=== PATIENT | male | born 1970 | race Caucasian/White ===

== ENCOUNTER 2023-10-29 15:52 | Outpatient (CLI) | payer OTHER, SELFPAY ==
--- NOTE | ~2023-10-29 | CT_ITS ---
EXAMINATION: CT sinus wo con DATE: 10/29/2023 16:07 INDICATION: Chronic sinusitis TECHNIQUE: Computed tomography (CT) of the paranasal sinuses was performed without contrast. Iterativ e reconstruction technique was employed. Exam dose: 424.25 mGy-cm total exam DLP. COMPARISON: None FINDINGS: Prominent leftward deviation of the nasal septum. Prominent soft tissue swelling of the nasal turbinates. The ostiomeatal units are patent. The right frontal sinus is not developed. The left frontal sinus, the bilateral ethmoid air cells, ma xillary and sphenoid sinuses are normally developed and aerated. The mastoid air cells are normally developed and aerated. IMPRESSION: Prominent leftward deviation of nasal septum Prominent soft tissue swelling of the nasal turbinates Undeveloped right frontal sinus; sinuses, ostiomeatal units and mastoid air cells otherwise are well developed and aerated Reviewed, dictated and finalized at [facility]. Reviewed, dictated and finalized at location B. IMPRESSION: Prominent leftward deviation of nasal septum Prominent soft tissue swelling of the nasal turbinates Undeveloped right frontal sinus; sinuses, ostiomeatal units and mastoid air beth ls otherwise are well developed and aerated
== END 2023-10-29 15:53 ==
PROVIDERS: PCP Otolaryngology; Visit Provider Otolaryngology
DX: J32.9 Chronic sinusitis, unspecified (principal); J34.2 Deviated nasal septum; J34.89 Other specified disorders of nose and nasal sinuses
CPT/HCPCS: 70486

== ENCOUNTER 2024-08-28 09:29 | Outpatient (CLI) | payer OTHER, SELFPAY ==
--- NOTE | ~2024-08-28 | CT_ITS ---
Non-contrast CT scan of the Pelvis Clinical indication: Left lower quadrant pain Technique: 2.5 mm axial scans were obtained through the pelvis without intravenous or oral contrast. Dose reduction technique was used on this scan by utilizing automated exposure control and iterative reconstruction technique. The dose-length product (DLP) was 642.39 mGy-cm. Findings: Urinary bladder unremarkable. No pelvic mass seen. No ascites. Visualized bowel loops are u nremarkable. No pelvic lymphadenopathy seen. Osseous structures are intact. No soft tissue mass or fluid collection seen. Impression: No significant abnormality seen. Reviewed, dictated and finalized at location . Impression: No significant abnormality seen.
== END 2024-08-28 09:30 | disposition home or self-care (01) ==
LOC: MICIMG 09:30
PROVIDERS: PCP Emergency Medicine; Visit Provider Surgery
DX: R10.32 Left lower quadrant pain (principal)
CPT/HCPCS: 72192

== ENCOUNTER 2024-12-22 16:54 | Outpatient (CLI) | payer OTHER, SELFPAY ==
--- OUTSIDE RECORDS SUMMARY | 2024-12-22 16:58 | XMS_ITS | Continuity of Care Document ---
Author Organization [facility] Address [address] [place] [address] Phone Care Team Providers Care Boat Hoist Operator Name Role Phone Spencer Leblanc MD Unavailable Unavailable Allergies, Adverse Reactions, Alerts Substance Reaction Status Criticality No Known Allergies Active No Inform ation Procedures Procedure Date PREV VISIT, NEW, AGE 40-64 OFFICE/OUTPATIENT VISIT, [facility] Advance Directives Directive Yes / No Effective Date File Name No Information Encounters Encounter Description Practice Location Reason(s) For Visit Diagnoses Date Provider Providers Copied on Encounter [facility], [address], [place], [id number], [phone] [facility] No Information 5 Benji Palmer. [address] [place], [place], [id number] , [place]. tel:[phone] PREV VISIT, NEW, AGE 40-64 [facility], [address], [id number], [place] tel:[phone] [facility] physical (chief complaint) Inguinal herniaAbnormal weight lossEncounter for general adult medical exam w abnormal findingsPain in left finger(s) 5 Benji Palmer. [address], [place], [id number] , [place]. tel:[phone] Family History Family Member Type Diagnosis Age At Onset Father Problem prostate CA 65, in remission Brother Problem Alive and well Mother Problem Stroke 80 Payers Payer name Insurance type Covered green party ID Authoriza tion(s) No Information Social History Type Description Quantity Date Captured Comments Alcohol Use Details Unknown Caffeine Use Details Unknown Tobacco Use Status No Information Smoking Status No Information Sex Male Chief Complaint And Reason For Visit No Information Plan Of Treatment Date Type Action Status Referral Ordered: Pao Herrera [facility] : Plastic Surgery (related to Pain in left finger(s)) ordered Referral Referred To: Pao Herrera [address], [place], [id number] Ordered: Referrals: [facility] : Plastic Surgery. Pao Herrera. Evaluate and treat ordered Referral Referred To: Eugene Lackey [address] [facility] [address] [place] [address], [phone] Ordered: Referrals: Eugene Lackey. Evaluate and treat ordered History Of Present Illness Encounter Date Complaint History Of Prese nt Illness physical Pt needs annual physical Pt is on compound form of semaglutide for the past 4-5 months and he lost close to 40 pounds Pt tolerating semaglutide well. Pt never seen a doctor for above .He is getting it from some pharmacy friends. Pt denies any GI symptoms Pt notices a bulge left groin area which is easily reducible since 3 weeks ago Pt denies any pain Pt denies any nausea, vomiting, diarrhea, constipation or blood in stool. Pt overall feels well. Pt notices a swelling area proximal volar surface left ring finger for 2 years Pt denies any pain. Pt notices some stiffness sometimes. Pt denies any paresthesia .Pt denies any other complaints Instructions Date Instruction Additional Infor mation No Information Assessments Type Assessment Date No Information
--- OUTSIDE RECORDS SUMMARY | 2024-12-22 16:58 | XMS_ITS | Referral Summary ---
Author Organization [facility] [address] [place] Address [address] [place] [id number] Care Team Providers Care Research Advisor Name Role Phone Unknown, Notinfile Primary Care Provider Unavail able Allergies No known active allergies Medications No known medications Active Problems No known active problems Social History Tobacco Use Types Packs/Day Years Used Date Smoking Tobacco: Never Tobacco Cessation:Counseling Given: Not Answered Sex and Gender Information Value Date Recorded Sex Assigned at Not on file Legal Sex Male 5:33 PM CDT Gender Identity Not on file Sexual Orientation Not on file Last Filed Vital Signs Vital Sign Reading Time Taken Comments Blood Pressure 142/85 10/06/2023 8:55 AM CDT Pulse 85 10/06/2023 8:55 AM CDT Temperature 36.3 C (97.3 F) 10/06/2023 8:55 AM CDT Respiratory Rate 12 10/06/2023 8:55 AM CDT Oxygen Saturation 97% 10/06/2023 8:55 AM CDT Inhaled Oxygen Concentration - - Weight 107 kg (236 lb) 10/06/2023 8:55 AM CDT Height 180.3 cm (5' 11) 10/06/2023 8:55 AM CDT Body Mass Index 32.92 10/06/2023 8:55 AM CDT Plan of Treatment Not on file Insurance [facility] [employer] Care Teams Research Advisor Relationship Specialty Start Date End Date Unknown, Notinfile PCP - General 02/01/23
--- OUTSIDE RECORDS SUMMARY | 2024-12-22 16:58 | XMS_ITS | Data Portability ---
Author Organization [place] - [employer], Main Office Address [address] [place] [address] Assessment No assessment recorded. Plan of Treatment Reminders Order Date Submit Date Provider Last Modified By Organization Details Last Modified Time Details Appointments None recorded. Lab None recorded. Referral None recorded. Procedures None recorded. Surgeries septoplasty (SURG) 2023 024 [email or web address] Not available 4 09:38:05 submucous resection inferior turbinate (SURG) 2023 024 [email or web address] Not available 4 09:38:05 Imaging None recorded. Medication Orders None recorded. Patient TargetsNo targets recorded. Patient Instructions Encounter Date Encounter Id Patient Instructions Last Modified By Organization Details Last Modified Time 10/24/2023 [id number] we will consider additional antibiotics but 1st we will get a sinus CT Not available 10/24/2023 16:24:49 11/26/2023 [id number] he will undergo both septoplasty and turbinate reduction. Not available 11/26/2023 16:39:24 03/06/2024 [id number] he will use saline and return as needed Not available 03/06/2024 17:00:58 Reason for Referral None Reported. Results Created Date Observation Date Name Description Value Unit Range Abnormal Flag Note LastModifiedBy Organization Detail LastModifiedTime 03/09/20 21 03/09/2021 COLOG UARD cologuard result reportable negati ve negati ve NEGAT DARIN TEST RESUL T. A negat darin Colog uard resul t indic ates a low likel ihood that a color ectal cance r (CRC) or advan jenna adeno ma (nelly omato us polyp s with more advan jenna pre-m align ant featu res) is prese nt. [facility] e that a perso n with a negat darin Colog uard test has a color ectal cance r is less than 1 in 1500 (nega tive predi ctive value >99.9 %) or has an advan jenna adeno ma is less than 5.3% (nega tive predi ctive value 94.7% ). These data are based on a prosp ectiv e cross -sect ional study of 10,00 0 indiv idual s at [facility] risk for color ectal cance r who were scree carlnie with both Colog uard and colon oscop y. (Dorothy Golden. et al, N Engl J Med 2014; 370(1 4):12 86-12 97) The logan l value (refe rence range ) for this assay is negat darin. COLOG UARD RE-SC REENI NG RECOM MENDA TION: Perio dic color ectal cance r scree khoa is an impor tant part of preve ntive healt hcare for asymp tomat ic indiv idual s at [facility] risk for color ectal cance r. Follo wing a negat darin Colog uard resul t, the Ameri can Cance r Socie ty and U.S. Multi -Soci ety Task Force scree khoa guide lines recom mend a Colog uard re-sc reeni ng inter bayron of 3 years . Refer ences : Ameri can Cance r Socie ty Guide line for Color ectal Cance r Scree khoa: https ://celeste w.can cer.o rg/ca ncer/ colon -rect al-ca ncer/ detec tion- diagn osis- stagi ng/ac s-rec ommen datio ns.ht ml.; Zach PAULA, Andrew GAN, Arleen KRUSE, Color ectal Cance r Scree khoa: Recom menda tions for Physi cians and Patie nts from the U.S. Multi -Soci ety Task Force on Color ectal Cance r Jewell couch , Norma oliveira rolog y 2017; 112:1 016-1 030. TEST DESCR IPTIO N: [place] site algor ithmi c yao sis of stool DNA-b ioraymond kers with hemog lobin immun oassa y. Quant itati ve value s of indiv idual bioma rkers are not repor table and are not assoc iated with indiv idual bioma rker resul t refer ence range s. Colog uard is inten ded for color ectal cance r scree khao of adult s of eithe r sex, 45 years or older , who are at [facility] for color ectal cance r (CRC) . Colog uard has been appro sruthi for use by the U.S. FDA. The perfo rmanc e of Colog uard was estab lishe d in a cross secti onal study of [facility] adult s aged 50-84 . Colog uard perfo rmanc e in patie nts ages 45 to 49 years was estim ated by sub-g roup yao sis of near- age group s. Colon oscop ies perfo rmed for a posit darin resul t may find as the most clini ibrahima signi fican t lesio n: color ectal cance r [4.0% ], advan jenna adeno ma (incl uding sessi le carlos vaishali polyp s great er than or equal to 1cm diame ter) [20%] or non- advan jenna adeno ma [31%] ; or no color ectal neopl renata [45%] . These estim ates are deriv ed from a prosp ectiv e cross -sect ional scree khoa study of ,00 0 indiv idual s at [facility] risk for color ectal cance r who were scree carline with both Colog uard and colon oscop y. (Dorothy Mcgill et al, N Engl J Med 2014; 370(1 4):12 86-12 97.) Colog uard may produ ce a false negat darin or false posit darin resul t (no color ectal cance r or preca ncero us polyp prese nt at colon oscop y follo w up). A negat darin Colog uard test resul t does not guara ntee the absen ce of CRC or advan jenna adeno ma (pre- cance r). The curre nt Colog uard scree khoa inter bayron is every 3 years . (Kiara adrian Cance r Socie ty and U.S. Multi -Soci ety Task Force ). Colog uard perfo rmanc e data in a 10,00 0 patie nt pivot al study using colon oscop y as the refer ence metho d can be acces sed at the follo wing locat ion: www.e xactl abs.c om/re sults . Addit ional descr iptio n of the Colog uard test proce ss, warni ngs and preca ution s can be found at www.c ologu fallon.c om. Not Available [facility] (Cologuard Orders Only) [address], [place], [address], 03/12/2021 07:55:00 10/30/19 24 10/29/2023 CT, sinus es, w/o contr ast No observ ation record ed. [email or web address] [facility] [address] [facility] [address], [place], [address], 10/30/2023 09:44:57 10/31/19 24 10/31/2023 CT, sinus es, w/o contr ast No observ ation record ed. [facility] [address] [facility] [address], [place], [address], 10/31/2023 15:14:13 Result Notes None recorded. Problems Name Problem SNOMED Code Status Onset Date Resolution Date Notes Provider Name and Address Organization Details Recorded Time Family history of malignant neoplasm of prostate 512714920 Active 2020 Not Available [facility] 3 23:37:07 Cyst of finger 346924212 Active 2020 Not Available [facility] 3 23:37:07 COVID-19 557023710 Active 2021 Not Available [facility] 3 23:37:08 Chronic sinusitis 99509575 Active 2023 Hector Bowman MD [address] [facility], [place], [address] , [facility] [facility] 4 16:24:10 Deviated nasal septum 849244498 Active 2023 Hector Bowman MD [address], [place], [address] , [facility] [employer] [facility] 4 16:39:02 Hypertrophy of nasal turbinates 75894878 Active 2023 Hector Bowman MD [address], [place], [address] , [facility] [employer] [facility] 4 16:39:11 Postoperative pain 195227160 Active 2023 Hector Bowman MD [address], [place], [address] , [facility] [employer] [facility] 4 17:24:45 Problem Notes None recorded. Procedures Surgical History Date Name Laterality Status Provider Name and Address Organization Details Recorded Time 02/25/20 24 reduction of nasal turbinate completed Hannah Ibrahim RN [facility] 03/06/2024 09:07:11 02/25/20 24 SEPTOPLASTY (SURG) completed Hannah Ibrahim RN [facility] [employer] [facility] 02/26/2024 16:05:25 Tonsillectomy completed Not Available [facility] 08/09/2022 23:35:50 Imaging Results None recorded. Procedure Notes None recorded. Medical Equipment None Reported. Allergies No known drug allergies Medications Name Sig Start Date Stop Date Status Note LastModified by Organization Details LastModified Time doxycycline hyclate 100 mg capsule TAKE 1 TABLET/ CAPSULE (100 MG TOTAL) BY MOUTH 2 (TWO) TIMES A DAY FOR 10 DAYS 03/06 completed Not Available Not Available Not Available prednisone 20 mg tablet TAKE 1 TABLET BY MOUTH TWICE A DAY FOR 5 DAYS 03/06 completed Not Available Not Available Not Available hydrocodone 7.5 mg-acetaminop hen 325 mg tablet TAKE 1 TABLET BY MOUTH EVERY 4 TO 6 HOURS 03/06 completed Not Available Not Available Not Available amoxicillin 875 mg-potassium clavulanate 125 mg tablet TAKE 1 TABLET BY MOUTH TWICE A DAY FOR 7 DAYS 03/06 completed Not Available Not Available Not Available Vitals Date Recorded Body weight Body mass index (BMI) Body height Body temperature Provider Name and Address Organization Details Last Updated DateTime 10/24/2023 319489.43 g 33.3 kg/m2 177.8 cm 97.6 [degF] Hannah Ibrahim RN [facility] 10/24/2023 16:02:38 Date Recorded Body height Body mass index (BMI) Body weight Body temperature Provider Name and Address Organization Details Last Updated DateTime 11/26/2023 177.8 cm 32.6 kg/m2 907839.19 g 97.8 [degF] Hannah Ibrahim RN [facility] [employer] [facility] 11/26/2023 16:09:17 Date Recorded Body mass index (BMI) Body height Oxygen saturation Oxygen saturation in Arterial blood by Pulse oximetry Heart rate Body temperature Body weight Systolic And Diastolic Provider Name and Address Organization Details Last Updated DateTime 1 30.1 kg/m2 182.88 cm 98 % 98 % 68 /min 96.6 [degF] 106914. 51 g 136/82 mm[Hg] Not Available [facility] 3 23:36:50 Date Recorded Body height Body mass index (BMI) Body weight Body temperature Provider Name and Address Organization Details Last Updated DateTime 03/06/2024 177.8 cm 30.1 kg/m2 85441.4 g 97.8 [degF] Hannah Ibrahim RN [facility] [employer] [facility] 03/06/2024 16:43:09 Social History Question Answer Notes LastModified by Organizat ion Details LastModified Time Tobacco Smoking Status Never Smoker Not Available [facility] 08/09/2022 23:35:46 What Is Your Level Of Caffeine Consumption? Heavy [id number] Information not available 08/09/2022 In The 14 Days Before Symptom Onset, Have You Had Close Contact With A Laboratory-confirm ed COVID-19 While That Case Was Ill? No [id number] Information not available 08/09/2022 In The 14 Days Before Symptom Onset, Have You Had Close Contact With A Person Who Is Under Investigation For COVID-19 While That Person Was Ill? No [id number] Information not available 08/09/2022 What Type Of Diet Are You Following? REGULAR [id number] Information not available 08/09/2022 What Is Your Relationship Status? [id number] Information not available 08/09/2022 Have You Recently Traveled Abroad? No [id number] Information not available 08/09/2022 Do You Have Any Dietary Restrictions? No [id number] Information not available 08/09/2022 Sex: Unknown Functional Status Question Answer Note LastModified by Organizat ion Details LastModified Time Do you use any illicit or recreational drugs? Yes marijuana edibles [id number] Information not available 08/09/2022 Do you or have you ever used any other forms of tobacco or nicotine? No [id number] Information not available 08/09/2022 What is your level of alcohol consumption? Occasional [id number].[id number] Information not available 08/09/2022 What is your exercise level? Moderate 60-70 miles biking @17 mph - per week [id number].[id number] Information not available 08/09/2022 Mental Status None recorded. Family History Relationship Description Onset Age of this Age Resolved Age Notes LastModified by Organization Details LastModified Time Father Malignant neoplasm of prostate [id number] Not available 08/09/2022 23:35:54 Mother Sinusitis MOTHER HAD SINUS SURGER Y THAT FIXED HER PROBLE MS [email or web address] Not available 10/24/2023 16:01:20 Medical History Condition Response NO SIGNIFICANT PAST MEDICAL HISTORY Y ENT Y Immunizations Vaccine Type Date Status Note Provider Nam e and Address Organization Details Recorded Time COVID-19, mRNA, LNP-S, PF, 100 mcg/0.5mL dose or 50 mcg/0.25mL dose 11/10/2020 completed Not Available [facility] 3 23:38:09 COVID-19, mRNA, LNP-S, PF, 100 mcg/0.5mL dose or 50 mcg/0.25mL dose 10/20/2020 completed Not Available [facility] 3 23:38:09 Past Encounters Encounter ID Performer Location Encounter Start Date Encounter Closed Date Diagnosis/Indication Diagnosis SNOMED-CT Code Diagnosis ICD10 Code Diagnosis Note [id number] Haydee Lewis MD [facility] [place] [address] [facility] [place] [address] 03/01/2021 00:00:00 03/01/2021 15:02:23 [id number] Haydee Lewis MD [facility] [place] [address] [facility] [place] [address] 06/21/2021 00:00:00 06/21/2021 15:38:41 [id number] Hector Bowman MD [facility] [place] [address] [place] [address] 10/24/2023 15:55:02 10/25/2023 15:48:28 Chronic sinusitis 31700327 J32.9 [id number] Hector Bowman MD [facility] [place] [address] [place] [address] 11/26/2023 16:00:25 11/28/2023 11:52:05 Chronic sinusitis 58998324 J32.9 Deviated nasal septum 12 4021817 J34.2 Hypertroph y of nasal turbinates 63667385 J34.3 [id number] Hector Bowman MD [facility] [place] [address] [place] [address] 03/06/2024 16:40:05 03/07/2024 08:20:15 Deviated nasal septum 183762327 J34.2 Health Concerns Section Related Observation LastModified by Organization Detai ls LastModified Time None Recorded Concern Status LastModified by Organization Details LastModified Time None Recorded Advance Directives Directive None Recorded Payers Insurance Date Sequence Insurance Name Policy Number Policy Salmeron Covered Member ID Salmeron Member ID Guarantor Name 03/06/2024 1 [facility] [id number] Frederick Giang [id number] Frederick Giang Notes Date Note Type Note Provider Name and Address Organization Details Recorded Time 10/24/2023 text/html this patient has a 4 week history of pain pressure and frontal headaches. Buop-eyv-gpyoarxz helped somewhat but he ended up taking a 7 day course of antibiotics followed by a 10 day course of antibiotics including prednisone. This helped but he still has some residual pressure. Been off of medications for 5 days. Might have seasonal allergies. His symptoms are worse on the left. Hector Bowman MD [address], [place], [address], [employer] [facility] 10/24/2023 16:25:09 11/26/2023 text/html the CT scan was reviewed which revealed septal deviation and turbinate hypertrophy. Hector Bowman MD [address], [place], [address], [employer] [facility] 11/26/2023 16:39:49 03/06/2024 text/html he is doing well following septoplasty and turbinate reduction. His reports that he snores less. Hector Bowman MD [address], [place], [address], [employer] [facility] [facility] [employer] [facility] 03/06/2024 17:01:13
--- OUTSIDE RECORDS SUMMARY | 2024-12-22 16:58 | XMS_ITS | Clinical Summary ---
Author Organization [facility] [place] [address] Address [address] [place] [address] Care Team Providers Care Power Crane Operator Name Role Phone Unknown, Notinfile Primary Care Provider Unavail able Allergies No known active allergies Medications No known medications Active Problems No known active problems Surgical History Surgery Date Site/Laterality Comments EYE SURGERY [place] when a child ADENOIDECTOMY HAND SURGERY Left repair of skin injury to dorsum of hand Medical History Medical History Date Comments No pertinent past medical history Family History Medical History Relation Name Comments Arthritis Other Relation Name Status Comments Other Social History Tobacco Use Types Packs/Day Years Used Date Smoking Tobacco: Never Tobacco Cessation:Counseling Given: Not Answered Sex and Gender Information Value Date Recorded Sex Assigned at Not on file Legal Sex Male 5:33 PM CDT Gender Identity Not on file Sexual Orientation Not on file Obstetrics History Last Filed Vital Signs Vital Sign Reading [...] 10/06/2023 8:55 AM CDT Plan of Treatment Health Maintenance Due Date Last Done Comments Colon Cancer Screening-Colonoscopy 1970 Depression Screening 1970 Hepatitis C Screening 1970 Prostate Cancer Screening-PSA 1970 DTaP/Tdap/Td Vaccine (1 - Tdap) 1981 Hepatitis B Screening 1988 Regular Well Visit/Exam 18-64 1988 Zoster Vaccine (1 of 2) 2020 Covid-19 Vaccine ( season) 2024 04/21/2021, 11/10/2020, 10/20/2020, Additional history exists Influenza Vaccine (Season Ended) 2025 04/21/2021, 03/06/2018 Pneumococcal vaccine <65 Aged Out No longer eligible based on patient's age to complete this topic Insurance [facility] PL[facility] [employer] [employer] Care Teams Power Crane Operator Relationship Specialty Start Date End Date Unknown, Notinfile PCP - General 02/01/23
--- OUTSIDE RECORDS SUMMARY | 2024-12-22 16:58 | XMS_ITS | Clinical Summary ---
Author Organization [facility] [employer] Address [address] [place] [address] Care Team Providers Care Spray Pilot Name Role Phone Unavailable Primary Care Provider Unavailabl e Source Comments [facility],non-owned Affiliates and Associated Physician Practices is amultiple site organization consisting of ambulatory clinics and hospital sitesin [place], [place], [place] and [place]. This disclosure is being madepursuant to the Care Everywhere program and may not contain all information available regarding this patient. Last updated 18.[facility] [employer] Allergies No known active allergies Medications * Be aware that medications may not be up to date on this document. Alwaysverify current medications with the patient. No known medications Social History Tobacco Use Types Packs/Day Years Used Date Smoking Tobacco: Never Smokeless Tobacco: Never Sex and Gender Information Value Date Recorded Sex Assigned at Not on file Legal Sex Male 8:09 AM CDT Gender Identity Not on file Sexual Orientation Not on file Last Filed Vital Signs Vital Sign Reading Time Taken Comments Blood Pressure 126/80 04/21/2019 10:50 AM [employer] Pulse 78 04/21/2019 10:50 AM [employer] Temperature 36.9 C (98.5 F) 04/21/2019 10:50 AM [employer] Respiratory Rate 16 04/21/2019 10:50 AM [employer] Oxygen Saturation 98% 04/21/2019 10:50 AM [employer] Inhaled Oxygen Concentration - - Weight 99.8 kg (220 lb) 04/21/2019 10:50 AM [employer] Height 182.9 cm (6') 04/21/2019 10:50 AM [employer] Body Mass Index 29.84 04/21/2019 10:50 AM [employer] Plan of Treatment Health Maintenance Due Date Last Done Comments COLOGUARD (AGES 45-75) - COL ON CA SCREENING 1970 COLON MONITORING 1970 COLONOSCOPY - COLON CA SCREENING 1970 CT COLONOGRAPHY - COLON CA SCREENING 1970 Colorectal Cancer Screening 1970 FIT - COLON CA SCREENING 1970 FLEX SIG - COLON CA SCREENING 1970 LIPID TESTING 1970 HIV SCREENING 1985 HEPATITIS C SCREENING 03/13/1988 DTAP/TDAP/TD VACCINES (1 - Tdap) 1989 HEPATITIS B VACCINE (1 of 3 - 19+ 3-dose series) 1989 SCREENING FOR DIABETES 10/16/2017 PNEUMOCOCCAL VACCINE 50+ (1 of 1 - PCV) 2020 ZOSTER VACCINE (1 of 2) 2020 COVID-19 VACCINE (1 - 2023-2 5 season) 2024 DEPRESSION SCREENING 06/11/2024 INFLUENZA VACCINE (#1) 2025 HIB VACCINE Aged Out No longer eligi ble based on patient's age to complete this topic HPV VACCINE Aged Out No longer eligi ble based on patient's age to complete this topic MENINGOCOCCAL (Group B) VACC INE SHARED DECISION-MAKING Aged Out No longer eligibl e based on patient's age to complete this topic MENINGOCOCCAL GROUPS A/C/Y/W VACCINE Aged Out No longer eligible b ased on patient's age to complete this topic Insurance [place] [address]
== END 2024-12-22 16:55 | disposition home or self-care (01) ==
LOC: ANHLAB 16:56
PROVIDERS: PCP Emergency Medicine; Visit Provider Anesthesiology
DX: K40.90 Unilateral inguinal hernia, without obstruction or gangrene, not specified as recurrent (principal)
CPT/HCPCS: 36415; 86850; 86900; 86901

== ENCOUNTER 2024-12-25 02:33 | Day surgery (SDC) | payer OTHER, SELFPAY ==
[2024-12-19 15:18] VITALS: BMI 25.1
--- NOTE | 2024-12-19 15:25 | PC.NURSE ---
Report to the Outpatient Waiting Room, entrance under the green pavilion located off [facility], at time _1000_ on date _[id number]_. Planned Procedure Time: _1200_.? Time changes happen often and if your time is changed the preop area will call you the afternoon before. - You and your visitor will be asked to self-screen and do not enter if you have any COVID symptoms. Please call surgeon if you need to reschedule. - A mask is optional within the hospital at this time. Patients may have clear liquids (water, carbonated beverages, clear teas, apple juice) until 3 hours prior to surgery with a maximum of 20 ounces. - No food from midnight until time of surgery and no smoking, or chewing tobacco (or any form of nicotine). No chewing gum, candy or mints. Take only the following medications with a SIP of water on the morning of surgery: ___None____ DO NOT STOP ANY OF YOUR OTHER PRESCRIPTION MEDICATIONS PRIOR TO SURGERY EXCEPT THE FOLLOWING Hold all vitamins and supplements for 3 days per anesthesiologist. Medications to discontinue per physician Date to take last dose Please no make-up, nail kosovan, hairspray, perfume, deodorant, or body powder the day of surgery.? No jewelry (including any body piercings) or valuables the day of surgery, leave them at home.? Please take a shower or bath the night before, or the morning of, surgery with an antibacterial soap.? Wear comfortable, loose fitting clothing.? - Jewelry must be removed prior to entering the operating room.? Rings and piercings that are not removed may be cut off. - The hospital will not accept responsibility for valuables.? - Please leave all valuables, including medications, at home the day of surgery. If you are going home after surgery, a licensed special client bus driver must drive you home.? - NO public transportation without another adult if you receive anesthesia. - We recommend that an adult stay with you for 24 hours following discharge. - We also recommend that you do not drive, make important decision, drink alcoholic beverages, or take any drugs that were not prescribed by your health care provider for at least 24 hours after your discharge time. Follow any additional instructions given to you from your surgeon. Telephone instructions given to __Michael__and asked if any additional questions and then verbalized understanding. Patient advised to call surgeon office or pre surgery nurse liaison [phone] if any additional questions.
--- NOTE | 2024-12-24 13:10 | PM.SD2 ---
Same Day Admit/Disch: HPI History of Present Illness Chief complaint: left inguinal hernia Narrative: Frederick Giang is a 54 year old male who has noticed an intermittent bulge in the left groin since about the middle of July. This has gotten bigger and is occasionally uncomfortable. Exam in the office showed a reducible left inguinal hernia. He is taken to surgery now for robotic laparoscopic left inguinal hernia repair with mesh. He is otherwise in good health REPLACED BY [facility] Past Medical History Medical History Localized swelling, mass and lump, left upper limb Surgical History Surgical History Hx of tonsillectomy Family History Family History Mother Patient's mother is in good health Father Patient's father is in good health Social History Social History Smoking status: Never smoker Alcohol intake: current Substance use type: marijuana Other substance usage details: Gummies on weekend. Do You Feel Safe in your Home?: Yes Lack of Transportation: No Lack of Food: Never True Current Housing: I Have Housing Concerned About Future Housing: No Difficulty Paying Gas/Electric Bills: No Difficulty Paying for Meds: No Currently Unemployed: No Education: Bachelor's Degree Difficulty w/ Childcare or Family Care: No Living arrangements: with family Spiritual care concerns: No Same Day Admit/Disch: Med Pre-admit Medications Home Medications ?Medication ?Instructions ?Recorded ?Confirmed ?Type usujzurj-pdgfgjos-pyhvv acid 400 1 tablet PO DAILY 12/19/24 12/25/24 History mcg-vit K 20 mcg-lycop 300 mcg tablet (One-A-Day Men's Multivitamin) ketorolac 10 mg tablet 10 mg PO Q6H 4 days #16 tabs 12/25/24 Rx oxycodone-acetaminophen 5 mg-325 0.5 - 1 tablet PO Q4H PRN pain #10 12/25/24 Rx mg tablet (Percocet) tabs semaglutide 0.25 mg or 0.5 mg (2 2.2 mg subcut WEEKLY 12/25/24 12/25/24 History mg/3 mL) subcutaneous pen injector (Ozempic) Review of Systems Review of Systems All systems reviewed & are unremarkable except as noted in HPI and below (HPI) Exam Const: General: comfortable, no acute distress, alert and awake HENMT: Head: normocephalic and atraumatic Mouth: Yes Normal oral and palatal mucosa present Eyes: Conjunctivae: conjunctivae normal Pupils: Equal, round and reactive pupils present EOM: EOMs intact bilaterally Neck: Neck: normal visual inspection, no lymphadenopathy and nontender Resp: Effort & Inspection: normal respiratory effort Auscultation: clear to auscultation bilaterally Cardio: Rate: regular rate Rhythm: regular rhythm Heart sounds: no gallops, no murmurs and no rubs GI: Inspection: non-distended GI Palp: Yes Soft to palpation, No Tenderness to palpation present (GI), No Hepatomegaly present and No Splenomegaly present : Male General Exam: Yes hernia (Left inguinal, bulges with cough, reducible) Penis: Yes normal penis Scrotum: scrotum normal Testes: Testes normal Skin: Lesions: no lesions Rashes: no rashes Neuro: General: no focal motor deficits and CN's II-XI intact bilaterally Cranial nerves: Yes Equal, round and reactive pupils present, Yes Bilaterally intact EOM present, Yes facial symmetry and Yes Midline tongue present Speech: normal speech Motor exam (neuro): 5/5 motor strength present throughout and Motor abnormalities not present Extrem: General: no clubbing, cyanosis or edema and edema Psych: Affect: normal affect Thought process: Normal thought process present Insight: Good insight present (Psych) DS: Summary Time Spent with Patient Time attestation: Total time spent providing and/or coordinating discharge services: DS: Admitting Diagnosis Discharge Date 12/25/2024 Admitting Diagnosis Left inguinal hernia-not incarcerated but symptomatic and reducible. Plan to proceed with robotic laparoscopic repair using mesh. The procedure, risks, benefits, alternatives, have all been discussed. Usual length of the surgery and length of the recovery have been discussed. The use of mesh for the repair has been discussed. All questions were answered, patient agrees to go ahead. DS: Discharge Diagnosis Discharge Diagnosis (1) Left inguinal hernia: Code(s): K40.90 - Unilateral inguinal hernia, without obstruction or gangrene, not specified as recurrent Status: Chronic Assessment and Plan: Robotic laparoscopic repair left inguinal hernia performed 12/25/[address] Lackey Discharge Plan Discharge Patient Disposition: Home Discharge Instructions: 1. May shower the day after surgery over incisions. 2. Call office for: -Wound increasingly painful or bleeding -Vomiting -Fever of greater than 101 degrees 3. Wear scrotal support at all times except when sleeping or showering for 1 week. 4. If no bowel movement for three days, take 1 oz. (30 ml) Milk of Magnesia, if no results, take Fleets enema. 5. No heavy lifting > 15-20 pounds for 2 weeks. 6. No driving for 3 days or while taking narcotic pain medications. 7. Up walking 10-30 minutes three times per day. 8. Resume previous home medications. 9. Follow-up 10-14 days in office for wound check or as previously scheduled. 10. Oral pain medications prescription to be sent home with patient. 11. NUTRITION: Start out by drinking fluids and increase your diet as tolerated. If you experience nausea, try dry toast, crackers, and 7-UP. If nausea or vomiting persists, contact your surgeon?s office. Patient Language: Armenian Stand Alone Forms: General Discharge Instructions Follow-up/Referrals: Eugene Lackey MD [Physician] - 2 Weeks Discharge Medications: New ketorolac 10 mg tablet 10 mg PO Q6H 4 Days Qty: 16 0RF oxycodone-acetaminophen [Percocet] 5-325 mg tablet 0.5 - 1 tablet PO Q4H PRN (Reason: pain) Qty: 10 0RF Continued One-A-Day Men's Multivitamin 400-20-300 mcg tablet 1 tablet PO DAILY Ozempic 0.25 mg or 0.5 mg (2 mg/3 mL) pen injector 2.2 mg subcut WEEKLY Rx Instructions: for 4 weeks
[2024-12-25] VITALS (8 sets, daily range): BP systolic 116–153; BP diastolic 49–88; PULSE 63–84; RESP 12–18; TEMP 36.4–36.5; O2SAT 99–100
--- OUTSIDE RECORDS SUMMARY | 2024-12-25 02:36 | XMS_ITS | Continuity of Care Document ---
Author Organization [facility] Address [address] [place] [address] Phone Care Team Providers Care Unit Secy Name Role Phone Spencer Leblanc MD Unavailable Unavailable Allergies, Adverse Reactions, Alerts Substance Reaction Status Criticality No Known Allergies Active No Inform ation Procedures Procedure Date PREV VISIT, NEW, AGE 40-64 OFFICE/OUTPATIENT VISIT, [facility] Advance Directives Directive Yes / No Effective Date File Name No Information Encounters Encounter Description Practice Location Reason(s) For Visit Diagnoses Date Provider Providers Copied on Encounter [facility], [address], [place], [id number], tel:[phone] [facility] No Information 5 Benji Palmer. [address] [place], [place], [id number] , [place]. tel:[phone] PREV VISIT, NEW, AGE 40-64 [facility], [address] [place], [place], [id number], [place] tel:[phone] [facility] physical (chief complaint) Inguinal herniaAbnormal weight lossEncounter for general adult medical exam w abnormal findingsPain in left finger(s) 5 Benji Palmer. [address] [place], [place], [address] , [place]. tel:[phone] Family History Family Member Type Diagnosis Age At Onset Father Problem prostate CA 65, in remission Brother Problem Alive and well Mother Problem Stroke 80 Payers Payer name Insurance type Covered republican ID Authoriza tion(s) No Information Social History [...] ordered Referral Referred To: Pao Herrera [address] [place], [place], [phone] Ordered: Referrals: Allopathic & Osteopathic Physicians : Plastic Surgery. Pao Herrera. Evaluate and treat ordered Referral Referred To: Eugene Lackey [address] [facility] [address] [place] [address], [phone] Ordered: Referrals: Eugene Lackey. Evaluate and treat [...]
--- OUTSIDE RECORDS SUMMARY | 2024-12-25 02:36 | XMS_ITS | Referral Summary ---
Author Organization [facility] [address] Address [address] [place] [address] Care Team Providers Care Car Hop Name Role Phone Unknown, Notinfile Primary Care [...] Plan of Treatment Not on file Insurance [facility] PL[facility] Care Teams Car Hop Relationship Specialty Start Date End Date Unknown, Notinfile PCP - General 02/01/23
--- OUTSIDE RECORDS SUMMARY | 2024-12-25 02:36 | XMS_ITS | Data Portability ---
Author Organization [place] [facility], Main Office Address [address] [place] [address] Assessment No assessment recorded. Plan of Treatment [...] By Organization Details Last Modified Time 10/24/2023 [id number] we will consider additional antibiotics but 1st we will get a sinus CT Not available 10/24/2023 16:24:49 11/26/2023 [id number] he will undergo both septoplasty and turbinate reduction. Not available 11/26/2023 16:39:24 03/06/2024 [id number] he will use saline and return as [...] ant featu res) is prese nt. [facility] that a perso n with a [...] of 10,00 0 indiv idual s at [place] risk for color ectal cance r [...] asymp tomat ic indiv idual s at [place] risk for color ectal cance r. [...] 112:1 016-1 030. TEST DESCR IPTIO N: Sully site algor ithmi c yao sis of stool DNA-b ioraymond kers with hemog lobin immun oassa y. Quant itati ve value s of indiv idual bioma rkers are not repor table and are not assoc iated with indiv idual bioma rker resul t refer ence range s. Colog uard is inten ded for color ectal cance r scree khoa of adult s of eithe r sex, 45 years or older , who are at [facility] for color ectal cance r (CRC) . Colog uard has been appro sruthi for use by the [place] FDA. The perfo rmanc e of Colog uard was estab lishe d in a cross secti onal study of [facility] adult s aged 50-84 . Colog uard [...] of ,00 0 indiv idual s at [facility] risk for color ectal cance r who [...] at www.c ologu fallon.c om. Not Available [employer] [facility] (Cologuard Orders Only) [address], [place], [address], 03/12/2021 07:55:00 10/30/19 24 10/29/2023 CT, sinus es, w/o contr ast No observ ation record ed. [email or web address] [facility] [address] [facility] [address], [place], [address], 10/30/2023 09:44:57 10/31/19 24 10/31/2023 CT, sinus es, w/o contr ast No observ ation record ed. [facility] [address] [facility] [address], [place], [address], 10/31/2023 15:14:13 Result Notes None recorded. Problems Name Problem SNOMED Code Status Onset Date Resolution Date Notes Provider Name and Address Organization Details Recorded Time Family history of malignant neoplasm of prostate 506662440 Active 2020 Not Available [employer] 3 23:37:07 Cyst of finger 069324757 Active 2020 Not Available [facility] 3 23:37:07 COVID-19 783991848 Active 2021 Not Available [facility] 3 23:37:08 Chronic sinusitis 30000756 Active 2023 Hector Bowman MD [address] [facility], [place], [address] , [facility] [employer] [facility] 4 16:24:10 Deviated nasal septum 813209620 Active 2023 Hector Bowman MD [address], [place], [address] , [facility] [employer] [facility] 4 16:39:02 Hypertrophy of nasal turbinates 12379403 Active 2023 Hector Bowman MD [address], [place], [address] , [facility] [employer] [facility] 4 16:39:11 Postoperative pain 670760200 Active 2023 Hector Bowman MD [address], [place], [address] , [facility] [employer] [facility] 4 17:24:45 Problem Notes None recorded. Procedures Surgical History Date Name Laterality Status Provider Name and Address Organization Details Recorded Time 02/25/20 24 reduction of nasal turbinate completed Hannah Ibrahim RN [facility] [employer] [facility] 03/06/2024 09:07:11 02/25/20 24 SEPTOPLASTY (SURG) completed Hannah Ibrahim RN [facility] [employer] [facility] 02/26/2024 16:05:25 Tonsillectomy completed Not Available [employer] [...] Address Organization Details Last Updated DateTime 10/24/2023 248136.43 g 33.3 kg/m2 177.8 cm 97.6 [degF] Hannah Ibrahim RN [facility] [employer] [facility] 10/24/2023 16:02:38 Date Recorded Body height Body mass index (BMI) Body weight Body temperature Provider Name and Address Organization Details Last Updated DateTime 11/26/2023 177.8 cm 32.6 kg/m2 728462.19 g 97.8 [degF] Hannah Ibrahim RN [facility] [employer] [facility] 11/26/2023 16:09:17 Date Recorded Body mass index (BMI) Body height Oxygen saturation Oxygen saturation in Arterial blood by Pulse oximetry Heart rate Body temperature Body weight Systolic And Diastolic Provider Name and Address Organization Details Last Updated DateTime 1 30.1 kg/m2 182.88 cm 98 % 98 % 68 /min 96.6 [degF] 811502. 51 g 136/82 mm[Hg] Not Available [facility] 3 23:36:50 Date Recorded Body height Body mass index (BMI) Body weight Body temperature Provider Name and Address Organization Details Last Updated DateTime 03/06/2024 177.8 cm 30.1 kg/m2 79047.4 g 97.8 [degF] Hannah Ibrahim RN [facility] [employer] [facility] 03/06/2024 16:43:09 Social History Question Answer Notes LastModified by Organizat ion Details LastModified Time Tobacco Smoking Status Never Smoker Not Available [facility] 08/09/2022 23:35:46 What Is Your Level Of Caffeine Consumption? Heavy [id number] Information not available 08/09/2022 In The 14 Days Before Symptom Onset, Have You Had Close Contact With A Laboratory-confirm ed COVID-19 While That Case Was Ill? No [id number] Information not available 08/09/2022 In The 14 Days Before Symptom Onset, Have You Had Close Contact With A Person Who Is Under Investigation For COVID-19 While That Person Was Ill? No [id number] Information not available 08/09/2022 What Type Of Diet Are You Following? REGULAR [id number].[id number] Information not available 08/09/2022 What Is Your Relationship Status? [id number] Information not available 08/09/2022 Have You Recently Traveled Abroad? No [id number] Information not available 08/09/2022 Do You Have Any Dietary Restrictions? No [id number] Information not available 08/09/2022 Sex: Unknown Functional Status Question Answer Note LastModified by Organizat ion Details LastModified Time Do you use any illicit or recreational drugs? Yes marijuana edibles [id number] Information not available 08/09/2022 Do you or have you ever used any other forms of tobacco or nicotine? No MIGRATION.60666 [id number] Information not available 08/09/2022 What is your level of alcohol consumption? Occasional [id number].[id number] Information not available 08/09/2022 What is your exercise level? Moderate 60-70 miles biking @17 mph - per week [id number].88649 [id number] Information not available 08/09/2022 Mental Status None recorded. Family History Relationship Description Onset Age of this Age Resolved Age Notes LastModified by Organization Details LastModified Time Father Malignant neoplasm of prostate [id number] Not available 08/09/2022 23:35:54 Mother Sinusitis MOTHER HAD SINUS SURGER Y THAT FIXED HER PROBLE MS [email or web address] Not available 10/24/2023 16:01:20 Medical History Condition Response NO SIGNIFICANT PAST MEDICAL HISTORY Y ENT Y Immunizations Vaccine Type Date Status Note Provider Nam e and Address Organization Details Recorded Time COVID-19, mRNA, LNP-S, PF, 100 mcg/0.5mL dose or 50 mcg/0.25mL dose 11/10/2020 completed Not Available [facility] 3 23:38:09 COVID-19, mRNA, LNP-S, PF, 100 mcg/0.5mL dose or 50 mcg/0.25mL dose 10/20/2020 completed Not Available [facility] 3 23:38:09 Past Encounters Encounter ID Performer Location Encounter Start Date Encounter Closed Date Diagnosis/Indication Diagnosis SNOMED-CT Code Diagnosis ICD10 Code Diagnosis Note [id number] Haydee Lewis MD [facility] [place] [address] [facility] [place] [address] 03/01/2021 00:00:00 03/01/2021 15:02:23 [id number] Haydee Lewis MD [facility] [place] [address] [facility] [place] [address] 06/21/2021 00:00:00 06/21/2021 15:38:41 [id number] Hector Bowman MD [facility] [place] [address] [place] [address] 10/24/2023 15:55:02 10/25/2023 15:48:28 Chronic sinusitis 14903987 J32.9 [id number] Hector Bowman MD [facility] [place] [address] [place] [address] 11/26/2023 16:00:25 11/28/2023 11:52:05 Chronic sinusitis 07479409 J32.9 Deviated nasal septum 12 3723738 J34.2 Hypertroph y of nasal turbinates 52424617 J34.3 [id number] Hector Bowman MD [facility] [place] [address] [place] [address] 03/06/2024 16:40:05 03/07/2024 08:20:15 Deviated nasal septum 045320846 J34.2 Health Concerns Section Related Observation LastModified by Organization Detai ls LastModified Time None Recorded Concern Status LastModified by Organization Details LastModified Time None Recorded Advance Directives Directive None Recorded Payers Insurance Date Sequence Insurance Name Policy Number Policy Salmeron Covered Member ID Salmeron Member ID Guarantor Name 03/06/2024 1 [facility] [id number] Frederick Giang [id number] Frederick Giang Notes Date Note Type Note Provider Name and Address Organization Details Recorded Time 10/24/2023 text/html this patient has a 4 week history of pain pressure and frontal headaches. Xdyg-xmd-brzpmekj helped somewhat but he ended up taking a 7 day course of antibiotics followed by a 10 day course of antibiotics including prednisone. This helped but he still has some residual pressure. Been off of medications for 5 days. Might have seasonal allergies. His symptoms are worse on the left. Hector Bowman MD [address], [place], [address], [employer] [facility] [employer] [facility] 10/24/2023 16:25:09 11/26/2023 text/html the CT scan was reviewed which revealed septal deviation and turbinate hypertrophy. Hector Bowman MD [address], [place], [address], [employer] [facility] [employer] [facility] 11/26/2023 16:39:49 03/06/2024 text/html he is doing well following septoplasty and turbinate reduction. His reports that he snores less. Hector Bowman MD [address], [place], [address], [employer] [facility] [employer] [facility] 03/06/2024 17:01:13
--- OUTSIDE RECORDS SUMMARY | 2024-12-25 02:36 | XMS_ITS | Clinical Summary ---
Author Organization [facility] Address [address] [address] Care Team Providers Care Direct Support Professional Caregiver Name Role Phone Unavailable Primary Care Provider Unavailabl e Source Comments [facility],non-owned Affiliates and Associated Physician Practices is amultiple site organization consisting of ambulatory clinics and hospital sitesin [place], [place], [place] and [place]. This disclosure is being madepursuant to the Care Everywhere program and may not contain all information available regarding this patient. Last updated 18.[facility] Allergies No known active allergies Medications * [...] Comments Blood Pressure 126/80 04/21/2019 10:50 AM [facility] Pulse 78 04/21/2019 10:50 AM [facility] Temperature 36.9 C (98.5 F) 04/21/2019 10:50 AM [facility] Respiratory Rate 16 04/21/2019 10:50 AM [facility] Oxygen Saturation 98% 04/21/2019 10:50 AM [facility] Inhaled Oxygen Concentration - - Weight 99.8 kg (220 lb) 04/21/2019 10:50 AM [facility] Height 182.9 cm (6') 04/21/2019 10:50 AM [facility] Body Mass Index 29.84 04/21/2019 10:50 AM [facility] Plan of Treatment Health Maintenance Due Date [...] patient's age to complete this topic Insurance [facility]
--- OUTSIDE RECORDS SUMMARY | 2024-12-25 02:36 | XMS_ITS | Clinical Summary ---
Author Organization [facility] [address] Address [address] [place] [address] Care Team Providers Care Pourer Metal Name Role Phone Unknown, Notinfile Primary Care [...] patient's age to complete this topic Insurance [facility] CHO[facility] PLUS [facility] [employer] Care Teams Pourer Metal Relationship Specialty Start Date End Date Unknown, Notinfile PCP - General 02/01/23
--- NOTE | 2024-12-25 08:26 | WPDHPUPDATE1 ---
History and Physical Update Update Date/Time: 12/25/24 08:26 History and Physical has been reviewed, including an updated exam of the patient. There are NO changes in the patient's condition. Risks, benefits, and alternatives have been discussed and questions answered. Patient agrees to proceed with procedure.
--- NOTE | 2024-12-25 11:33 | P.OP_ITS ---
Procedure Note - Detailed Date of Procedure 12/25/24 Pre-op Diagnosis left inguinal hernia Post-op Diagnosis Same Procedure Performed Robotic laparoscopic repair left inguinal hernia with mesh Surgeon Eugene Lackey MD Account Executive Vickie CONTI, Natacha CONTI Anesthesia General and Local Indications Patient has a long-standing bulge in the left groin. Examination showed a reducible left inguinal hernia. He is taken to surgery now for repair Findings Patient had the large indirect left inguinal hernia with weakness in the direct space but no hernia Description of Procedure Patient was taken to surgery and induced into general anesthesia. The abdomen is prepped and draped. Trocars were placed in the usual fashion starting with a 5 mm applied Medical optical trocar in the left subcostal position. 8 mm robotic ports were then placed and the applied Medical trocar was also then replaced with an 8 mm robotic port, all under direct visualization. Patient was placed in Trendelenburg. The hernia was easily seen. Dissection was carried out with an incision over the anterior peritoneum just above the inguinal canal structures. This was started laterally and proceeded medially to the median umbilical ligament. A peritoneal flap was then developed broadly proceeding from anterior to posterior. Medially dissection was in the retro rectus position down to Arjun's ligament. Dissection was also carried out laterally and centrally taking care to find and avoid the spermatic cord structures. Medially, dissection was carried beyond midline about 2 cm. The pubis was noted as was the medial aspect of the right rectus muscle. We also dissected beyond the pubis and Arjun's ligament in a posterior direction creating another 2 cm space and the urinary bladder from Arjun's ligament and the pubis for mesh placement. More laterally, we dissected to the obturator plug. I then started to reduce the hernia. Some loose adhesions were taken down and then I divided the transversalis fascia as it wrapped around the hernia. This division was done only anteriorly. With this method, I was able to slowly reduce the hernia. I also took care to dissect the spermatic cord vessels and vas deferens from the hernia sac. There was a small lipoma at the end of the hernia sac which I reduced as well. I then carefully divided the lipoma and then the hernia sac from the cord structures. I dissected farther posterior and eventually dissected the hernia sac and peritoneum at least 6 cm posterior to the lower margin of the hernia defect. I went back to both the medial and low more lateral dissection and ensured that there was good space for the mesh such that the peritoneal him would not ride under the mesh. A 17 x 12 cm left mid 3DMax mesh was then placed over the inguinal canal structures in the appropriate position. I sutured in place with 3-0 Vicryl suture placing a suture in Arjun's ligament and 2 sutures in the anterior abdominal wall, 1 medial and 1 lateral. The mesh appeared to be in great position. I then used 3-0 V lock and closed the peritoneal defect in running fashion. The 2 needles were then extricated from the peritoneal cavity. All looked good. We removed the remaining instruments and evacuated CO2. Trocars were removed after the robot was undocked. Skin wounds were closed with subcuticular 4-0 Monocryl skin suture. The wounds were dressed with Exofin surgical adhesive. A scrotal support was placed. Patient was awakened and taken to recovery in good condition. Implants Extra-large, 17 x 12 cm, left mid 3DMax mesh Estimated Blood Loss -5 Drains No Packing No Pathology None sent Complications None Condition Stable Disposition PACU [facility] Billing Surgery - Charge Forward: Surgery Billing (Robotic laparoscopic repair left inguinal hernia with mesh)
[2024-12-25] MEDS: ACETAMINOPHEN 500 MG TABLET 1000 MG PO (11:45)
[2024-12-25] MEDS: LACTATED RINGERS 1,000 ML 30 ML IV CONT ×2 (11:50→15:59)
[2024-12-25] MEDS: KETOROLAC 15 MG/ML VIAL (*BKC) IV PUSH (11:50)
[2024-12-25 12:13] LABS: Hematocrit 43.9 % (42.0-52.0); Hemoglobin 14.9 g/dL (14.0-18.0); Immature Granulocyte Percent A 0.2 % (0-0.5); Lymphocytes Absolute Auto 1.23 K/mm3 (0.9-3.2); Mean Corpuscular HGB Conc 33.9 g/dl (32-36); Mean Corpuscular Hemoglobin 29.5 pg (26-34); Mean Corpuscular Volume 86.9 fl (80-100); Nucleated Red Blood Cells Absolute Auto 0.000 K/mm3 (0.0-0.012); Nucleated Red Blood Cells Perc 0.0 % (0.0-0.2); Platelet Count Result 252 k/mm3 (150-375); Red Blood Count 5.05 M/mm3 (4.6-6.20); White Blood Count 4.8 K/mm3 (4.5-10.0)
--- NOTE | 2024-12-25 13:20 | SUR.PREOP ---
PT UPDATED ON SURGERY TIME DELAY BY DR. MISHRA
--- NOTE | 2024-12-25 13:54 | WPDANESEPPF ---
Anes - Initial Pre Proc Eval Procedure: Operation Date: 12/25/24 13:00 Proposed Procedures p Robotic Repair Left Inguinal Hernia with Mesh - Eugene Lackey MD Date/Time: 12/25/24 13:54 Surgeon: Eugene Lackey MD Pre Op Diagnosis: left inguinal hernia Patient Data Age: 54 Gender: M Height: 1.83 m Weight: 85.9 kg Last Vital Signs Temp 97.5 F L 12/25/24 11:10 Pulse 69 12/25/24 11:10 Resp 16 12/25/24 11:10 BP 151/88 H 12/25/24 11:10 Pulse Ox 100 12/25/24 11:10 O2 Del Method Room Air 12/25/24 11:10 Allergies Allergy/AdvReac Type Severity Reaction Status Date / Time No Known Allergies Allergy Verified 12/25/24 11:22 Home Medications ?Medication ?Instructions ?Recorded ?Confirmed ?Type yjfadibg-nyhrubys-jescn acid 400 1 tablet PO DAILY 12/19/24 12/25/24 History mcg-vit K 20 mcg-lycop 300 mcg tablet (One-A-Day Men's Multivitamin) ketorolac 10 mg tablet 10 mg PO Q6H 4 days #16 tabs 12/25/24 Rx oxycodone-acetaminophen 5 mg-325 0.5 - 1 tablet PO Q4H PRN pain #10 12/25/24 Rx mg tablet (Percocet) tabs semaglutide 0.25 mg or 0.5 mg (2 2.2 mg subcut WEEKLY 12/25/24 12/25/24 History mg/3 mL) subcutaneous pen injector (Ozempic) Laboratory Tests 12/25/24 11:52 WBC 4.8 K/mm3 (4.5-10.0) RBC 5.05 M/mm3 (4.6-6.20) Hgb 14.9 g/dL (14.0-18.0) Hct 43.9 % (42.0-52.0) MCV 86.9 fl (80-100) MCH 29.5 pg (26-34) MCHC 33.9 g/dl (32-36) RDW 11.5 % (11.5-14.5) Plt Count 252 k/mm3 (150-375) MPV 9.6 fl (7.4-10.4) Immature Gran % (Auto) 0.2 % (0-0.5) Neut % (Auto) 60.3 % (45.5-73.1) Lymph % (Auto) 25.6 % (18.3-44.2) Norman % (Auto) 11.0 H % (2.6-8.5) Eos % (Auto) 2.1 % (0-4.4) Baso % (Auto) 0.8 % (0.2-1.2) Lymph # (Auto) 1.23 K/mm3 (0.9-3.2) Norman # (Auto) 0.5 K/mm3 (0.1-0.6) Eos # (Auto) 0.1 K/mm3 (0-0.3) Baso # (Auto) 0.0 K/mm3 (0.0-0.1) Abs Immat Gran (auto) 0.01 K/mm3 (0.00-0.031) Absolute Neuts (auto) 2.9 K/mm3 (1.3-6.7) Absolute Nucleated RBC 0.000 K/mm3 (0.0-0.012) Nucleated RBC % 0.0 % (0.0-0.2) Patient hx anesthesia problems: none Family hx anesthesia problems: none Results Review: All pre-operative results and documents have been reviewed as part of the pre-operative evaluation. [facility] Past Medical History Medical History Localized swelling, mass and lump, left upper limb Surgical History Surgical History Hx of tonsillectomy Family History Family History Mother Patient's mother is in good health Father Patient's father is in good health Social History Social History Smoking status: Never smoker Alcohol intake: current Substance use type: marijuana Other substance usage details: Gummies on weekend. Do You Feel Safe in your Home?: Yes Lack of Transportation: No Lack of Food: Never True Current Housing: I Have Housing Concerned About Future Housing: No Difficulty Paying Gas/Electric Bills: No Difficulty Paying for Meds: No Currently Unemployed: No Education: Bachelor's Degree Difficulty w/ Childcare or Family Care: No Living arrangements: with family Spiritual care concerns: No Anes - Eval Final PreProcedure Day of Procedure 12/25/24 13:54 Patient weight: overweight Lungs: normal air movement Airway: Mallampati scale class II Neurological: alert and oriented Last oral intake: >/= 8 hours ASA classification: I Emergent: no Anesthetic plan: proceed Anesthesia type and monitoring: general ETT and standard monitoring Results Review: All pre-operative results and documents have been reviewed as part of the pre-operative evaluation. Pt off GLP1 for approx 10 days. Active w riding bike, exercises, no cp or sob. Informed Consent: The patient's anesthetic plan and its attendant risks and benefits were discussed with the patient/family/POA. Questions were solicited and answers provided to the satisfaction of the patient/family/POA.
[2024-12-25] MEDS: ceFAZolin 2 GM in SODIUM CHLORIDE 0.9% IV 50 ML 100 ML IVPB (14:00)
[2024-12-25] MEDS: BUPIVACAINE/EPINEPHRINE 0.5% 50 ML VIAL 30 ML INFILTRATE (14:42)
[2024-12-25] MEDS: fentaNYL CITRATE INJ (*CRX) 100 MCG/2 ML VIAL 25 MCG IV PUSH ×2 (16:26→16:33)
[2024-12-25] MEDS: oxyCODONE HCL (*CRX) 5 MG TAB IR PO (17:09)
== END 2024-12-25 17:39 | disposition home or self-care (01) ==
PROVIDERS: Anesthesiology; PCP Emergency Medicine; Visit Provider Surgery
PROC: 8E0Y4CZ Robotic Assisted Procedure of Lower Extremity, Percutaneous Endoscopic Approach (ICD-10-PCS; CPT 49650; principal; 2024-12-25 13:00)
DX: K40.90 Unilateral inguinal hernia, without obstruction or gangrene, not specified as recurrent (principal); F12.90 Cannabis use, unspecified, uncomplicated
CPT/HCPCS: 49650; S2900; 36415; 85025; J0690; A9270; C1781; J1100; J1171; J1885; J2003; J2250; J2405; J2704; J3010; J7120